=== PATIENT | male | born 1970 | race Caucasian/White ===

== ENCOUNTER 2020-10-11 21:53 | Inpatient (IN) | payer MEDICAID, OTHER ==
[~2020-10-11] VITALS: Ht 175.3 cm; Wt 81.5 kg
[2020-10-11] MEDS ORDERED: heparin 25,000 UNIT/250ml bag 250 ML IV SCH ×2 (21:55→23:55)
[2020-10-11] MEDS ORDERED: nitroGLYCERIN-Tridil 50MG/D5W 250 ML IV PRN (21:55)
[2020-10-11] MEDS ORDERED: normal saline 1000ML IV soln IVB ONE (21:55)
[2020-10-11] MEDS ORDERED: aspirin 81mg tab.chew PO ONE (21:55)
[2020-10-11] MEDS ORDERED: heparin 10,000 units/1 ML INJ IV ONE ×2 (21:55→22:20)
[2020-10-11 22:12] LABS: BASOPHILS # (AUTO) 0.1 X10'3 (0-0.2); BASOPHILS % (AUTO) 0.8 % (0-1); EOSINOPHILS # (AUTO) 0.2 X10'3 (0-0.9); EOSINOPHILS % (AUTO) 1.9 % (0-6); HEMATOCRIT 42.4 % (42.0-52.0); HEMOGLOBIN 14.6 g/dl (14.0-17.9); LYMPHOCYTES # (AUTO) 2.1 X10'3 (1.1-4.8); LYMPHOCYTES % (AUTO) 21.7 % (21-51); MEAN CORPUSCULAR HEMOGLOBIN 32.4 PG (27.0-31.0); MEAN CORPUSCULAR HGB CONC 34.5 g/dL (33.0-36.5); MEAN CORPUSCULAR VOLUME 93.9 FL (78-98); MEAN PLATELET VOLUME 7.7 FL (7.4-10.4); MONOCYTES # (AUTO) 0.9 X10'3 (0-0.9); MONOCYTES % (AUTO) 9.3 % (2-12); NEUTROPHILS # (AUTO) 6.5 X10'3 (1.8-7.7); NEUTROPHILS % (AUTO) 66.3 % (42-75); PLATELET COUNT 247 X10'3 (140-440); RED BLOOD COUNT 4.51 X10'6 (4.70-6.10); RED CELL DISTRIBUTION WIDTH 12.9 % (11.5-14.5); WHITE BLOOD COUNT 9.7 X10'3 (4.5-11.0)
--- NOTE | 2020-10-11 22:15 | NUR ---
[facility] [phone]
[2020-10-11] MEDS ORDERED: NO HOME MEDS (22:24)
[2020-10-11 23:21] LABS: ALANINE AMINOTRANSFERASE 34 U/L (12-78); ALBUMIN 3.2 G/DL (3.4-5.0); ALKALINE PHOSPHATASE 95 IU/L (46-116); ANION GAP 8 (8-16); ASPARTATE AMINO TRANSFERASE 41 U/L (10-37); BILIRUBIN,TOTAL 0.3 MG/DL (0.1-1.0); BLOOD UREA NITROGEN 24 MG/DL (7-18); BUN/CREATININE RATIO 19.7 (5.4-32.0); CALCIUM 8.4 MG/DL (8.5-10.1); CHLORIDE 110 MMOL/L (99-107); CREATININE 1.22 MG/DL (0.60-1.10); GLUCOSE 122 MG/DL (70-104); POTASSIUM 4.4 MMOL/L (3.5-5.1); SODIUM 143 MMOL/L (135-145); TOTAL CARBON DIOXIDE 24.6 MMOL/L (24-32); TOTAL PROTEIN 6.5 G/DL (6.4-8.2); eGFR 63 ML/MIN
[2020-10-11 23:30] LABS: MAGNESIUM 2.2 MG/DL (1.5-2.4); PARTIAL THROMBOPLASTIN TIME 86 SECONDS (22-32)
[2020-10-11] MEDS ORDERED: acetaminophen 325mg tablet PO PRN ×2 (23:55)
[2020-10-11] MEDS ORDERED: aminophylline 250mg/10ml inj. IV PRN (23:55)
[2020-10-11] MEDS ORDERED: HYDROcodone/acetaminophen 5mg/325mg tablet PO PRN (23:55)
[2020-10-11] MEDS ORDERED: metoprolol tartrate 1mg/ml inj IV PRN (23:55)
[2020-10-11] MEDS ORDERED: mag hydrox/Alum hydrox/simeth 30ml oral suspension PO PRN (23:55)
[2020-10-11] MEDS ORDERED: potassium Cl 20 mEq SR tablet PO PRN ×2 (23:55)
[2020-10-11] MEDS ORDERED: HYDROcodone/acetaminophen 10/325mg tab PO PRN (23:55)
[2020-10-11] MEDS ORDERED: magnesium Cl slow-release 64mg tablet PO PRN (23:55)
[2020-10-11] MEDS ORDERED: magnesium 2GM in 50ml NS 50 ML IV PRN (23:55)
[2020-10-11] MEDS ORDERED: regadenoson 0.4mg/5ml syringe IV PRN (23:55)
[2020-10-11] MEDS ORDERED: nitroGLYCERIN 0.4mg SUBLingual tab SL PRN (23:55)
[2020-10-11] MEDS ORDERED: morphine 2 MG/ML inj. syringe IV PRN (23:55)
[2020-10-11] MEDS ORDERED: potassium Cl 40MEQ/1/2NS 520ml 520 ML IV PRN ×2 (23:55)
[2020-10-11] MEDS ORDERED: heparin 10,000 units/1 ML INJ IV PRN (23:55)
[2020-10-11] MEDS ORDERED: ondansetron/PF 4mg/2ml inj IV PRN (23:55)
[2020-10-11] MEDS ORDERED: magnesium 4gm in 100ml NS 100 ML IV PRN (23:55)
[2020-10-11] MEDS ORDERED: magnesium hydroxide 30ml (MOM) UD suspension PO PRN (23:55)
[2020-10-12] VITALS (10 sets, daily range): BP systolic 111–142; BP diastolic 62–81
[2020-10-12] MEDS: normal saline 1000ml 1,000 ML IV SCH ×3 (00:21→19:30)
[2020-10-12 05:09] LABS: CLARITY,URINE CLEAR (Clear); COLOR,URINE YELLOW (Yellow); GLUCOSE, URINE NEGATIVE (Neg); KETONES,URINE NEGATIVE (Neg); LEUKOCYTE ESTERASE ,URINE NEGATIVE (Neg); NITRITES, URINE NEGATIVE (Neg); OCCULT BLOOD,URINE NEGATIVE (Neg); PH,URINE 5.5 (4.8-8.0); PROTEIN,URINE NEGATIVE (Neg); UROBILINOGEN,URINE 0.2 E.U/dL (0.2-1.0)
[2020-10-12 05:11] LABS: BASOPHILS % (AUTO) 0.5 % (0-1); EOSINOPHILS # (AUTO) 0.2 X10'3 (0-0.9); HEMATOCRIT 39.3 % (42.0-52.0); HEMOGLOBIN 13.1 g/dl (14.0-17.9); LYMPHOCYTES # (AUTO) 2.5 X10'3 (1.1-4.8); LYMPHOCYTES % (AUTO) 26.4 % (21-51); MEAN CORPUSCULAR HEMOGLOBIN 32.1 PG (27.0-31.0); MEAN CORPUSCULAR HGB CONC 33.4 g/dL (33.0-36.5); MEAN CORPUSCULAR VOLUME 96.2 FL (78-98); MEAN PLATELET VOLUME 7.9 FL (7.4-10.4); MONOCYTES # (AUTO) 0.8 X10'3 (0-0.9); MONOCYTES % (AUTO) 8.7 % (2-12); NEUTROPHILS # (AUTO) 5.8 X10'3 (1.8-7.7); NEUTROPHILS % (AUTO) 62.4 % (42-75); PLATELET COUNT 241 X10'3 (140-440); RED BLOOD COUNT 4.08 X10'6 (4.70-6.10); WHITE BLOOD COUNT 9.3 X10'3 (4.5-11.0)
[2020-10-12 05:14] LABS: PARTIAL THROMBOPLASTIN TIME 48 SECONDS (22-32)
[2020-10-12 05:16] LABS: UA COLLECTION TYPE CLN CATCH MIDSTREAM
[2020-10-12 05:20] LABS: ALANINE AMINOTRANSFERASE 40 U/L (12-78); ALBUMIN 3.1 G/DL (3.4-5.0); ALKALINE PHOSPHATASE 87 IU/L (46-116); ANION GAP 8 (8-16); ASPARTATE AMINO TRANSFERASE 48 U/L (10-37); BILIRUBIN,TOTAL 0.4 MG/DL (0.1-1.0); BLOOD UREA NITROGEN 19 MG/DL (7-18); BUN/CREATININE RATIO 18.3 (5.4-32.0); CALCIUM 7.9 MG/DL (8.5-10.1); CHLORIDE 111 MMOL/L (99-107); CHOL/HDL RATIO 3.6 (0.00-4.99); CHOLESTEROL 130 MG/DL (0-200); CREATININE 1.04 MG/DL (0.60-1.10); GLUCOSE 105 MG/DL (70-104); HDL CHOLESTEROL 36 MG/DL (35-60); LDL CHOLESTEROL 70 MG/DL (50-100); POTASSIUM 3.9 MMOL/L (3.5-5.1); SODIUM 144 MMOL/L (135-145); TOTAL PROTEIN 6.1 G/DL (6.4-8.2); TRIGLYCERIDES 109 MG/DL (20-135); eGFR 75 ML/MIN
[2020-10-12] MEDS: K and/or MAG REPLACEMENT MC SCH ×2 (08:00→20:00)
[2020-10-12] MEDS ORDERED: docusate sod 100mg capsule PO SCH ×2 (08:00→20:00)
[2020-10-12] MEDS ORDERED: PERFLUTREN PROTEIN-A MICROSPHR (Optison) 0.22 MG/ML 3ML VIAL IV ONE (08:00)
[2020-10-12] MEDS: morphine 2 MG/ML inj. syringe IV PRN ×2 (09:49→14:15)
--- NOTE | 2020-10-12 11:30 | NUR ---
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
[2020-10-12] MEDS ORDERED: iohexol 350MG/ML 100ml bottle IV ONE ×3 (11:32→12:55)
[2020-10-12] MEDS ORDERED: heparin 1,000 UNITS/NS 500ml 500 ML ONE (11:32)
[2020-10-12] MEDS ORDERED: iohexol 350 MG/ML 50ML vial IV ONE (11:32)
[2020-10-12] MEDS ORDERED: LIDOcaine 1% (10mg/ml)w/preservative injection 20ml MDV ONE ×2 (11:32→14:53)
[2020-10-12] MEDS ORDERED: midazolam 1 mg/ML 2ml injection ONE ×2 (11:33→14:53)
[2020-10-12] MEDS ORDERED: fentaNYL/PF 50MCG/1 ML 2ML syringe ONE ×2 (11:34→14:53)
[2020-10-12] MEDS ORDERED: tirofiban 5mg in NS 100mL 100 ML IV ONE (12:19)
[2020-10-12] MEDS ORDERED: heparin 1,000unit/ml 10ml vial 10 ML ONE ×2 (12:27→14:53)
[2020-10-12] MEDS ORDERED: clopidogrel 300mg tablet ONE (13:14)
--- NOTE | 2020-10-12 13:40 | NUR ---
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
[2020-10-12] MEDS ORDERED: ondansetron/PF 4mg/2ml inj IV PRN (14:10)
[2020-10-12] MEDS ORDERED: magnesium hydroxide 30ml (MOM) UD suspension PO PRN ×2 (14:10→14:40)
[2020-10-12] MEDS ORDERED: acetaminophen 325mg tablet PO PRN ×3 (14:10→14:40)
[2020-10-12] MEDS ORDERED: HYDROmorphone 1 mg/ml syringe IV ONE ×2 (14:25→14:45)
[2020-10-12] MEDS ORDERED: pantoprazole 40 MG vial IV ONE (14:25)
[2020-10-12] MEDS ORDERED: cyclobenzaprine 10mg tablet PO PRN ×2 (14:40→15:50)
[2020-10-12] MEDS ORDERED: proCHLORperazine 10 MG/2 ml inj IV PRN (14:40)
[2020-10-12] MEDS ORDERED: nitroGLYCERIN 0.4mg SUBLingual tab SL PRN (14:40)
[2020-10-12] MEDS ORDERED: OXAZEpam 15mg capsule PO PRN (14:40)
[2020-10-12] MEDS ORDERED: HYDROcodone/acetaminophen 10/325mg tab PO PRN (14:40)
[2020-10-12] MEDS ORDERED: iohexol 350 MG/1 ML 200ml bottle ONE (14:53)
[2020-10-12] MEDS: tirofiban 5mg in NS 100mL 100 ML IV SCH ×2 (14:54→21:30)
--- NOTE | 2020-10-12 15:10 | NUR ---
Shortly after arriving to the unit, Pt developed severe chest pain with radiation to neck and back. MD hamilton EKG ordered and pain medication and Nitro was started, which eventually eased the chest pain. Dr. Ga was phoned about Pt condition, and saw the patient. electroplating laborer team was called in and Pt went back to laborer at 1510.
--- NOTE | 2020-10-12 15:50 | NUR ---
Pt arrived back to the unit from cath lab tech. It was reported to me that the blood flow was good and there was no findings of any issues. Pt is resting comfortably now. Will continue to monitor.
--- NOTE | 2020-10-12 17:41 | NUR ---
Cardiac PTT critical >139. Heparin gtt stopped per protocol at 1730. Dr. Brown notified.
[2020-10-12] MEDS: docusate sod 100mg capsule PO SCH (19:52)
[2020-10-12] MEDS: ticagrelor 90mg tablet PO SCH (19:55)
[2020-10-12] MEDS: temazepam 15mg capsule PO PRN (20:37)
[2020-10-12] MEDS: HYDROcodone/acetaminophen 10/325mg tab PO PRN (20:39)
[2020-10-12] MEDS ORDERED: clopidogrel 300mg tablet PO ONE (21:10)
[2020-10-13] VITALS (17 sets, daily range): BP systolic 105–153; BP diastolic 58–90
[2020-10-13 02:58] LABS: BASOPHILS % (AUTO) 0.2 % (0-1); EOSINOPHILS % (AUTO) 0.5 % (0-6); HEMATOCRIT 38.1 % (42.0-52.0); HEMOGLOBIN 13.1 g/dl (14.0-17.9); LYMPHOCYTES # (AUTO) 1.4 X10'3 (1.1-4.8); LYMPHOCYTES % (AUTO) 18.4 % (21-51); MEAN CORPUSCULAR HEMOGLOBIN 32.3 PG (27.0-31.0); MEAN CORPUSCULAR HGB CONC 34.4 g/dL (33.0-36.5); MEAN CORPUSCULAR VOLUME 93.9 FL (78-98); MEAN PLATELET VOLUME 7.6 FL (7.4-10.4); MONOCYTES # (AUTO) 0.8 X10'3 (0-0.9); NEUTROPHILS # (AUTO) 5.5 X10'3 (1.8-7.7); NEUTROPHILS % (AUTO) 70.9 % (42-75); PLATELET COUNT 246 X10'3 (140-440); RED BLOOD COUNT 4.06 X10'6 (4.70-6.10); RED CELL DISTRIBUTION WIDTH 12.7 % (11.5-14.5); WHITE BLOOD COUNT 7.8 X10'3 (4.5-11.0)
[2020-10-13 03:20] LABS: ALANINE AMINOTRANSFERASE 38 U/L (12-78); ALBUMIN 2.8 G/DL (3.4-5.0); ALBUMIN/GLOBULIN RATIO 0.8 (1.1-1.5); ALKALINE PHOSPHATASE 92 IU/L (46-116); ANION GAP 8 (8-16); ASPARTATE AMINO TRANSFERASE 37 U/L (10-37); BILIRUBIN,TOTAL 0.6 MG/DL (0.1-1.0); BLOOD UREA NITROGEN 11 MG/DL (7-18); CALCIUM 7.9 MG/DL (8.5-10.1); CHLORIDE 106 MMOL/L (99-107); CREATININE 0.92 MG/DL (0.60-1.10); GLUCOSE 108 MG/DL (70-104); POTASSIUM 3.6 MMOL/L (3.5-5.1); SODIUM 139 MMOL/L (135-145); TOTAL CARBON DIOXIDE 25.3 MMOL/L (24-32); TOTAL PROTEIN 6.3 G/DL (6.4-8.2); eGFR 87 ML/MIN
[2020-10-13] MEDS: HYDROmorphone 1 mg/ml syringe IV PRN ×3 (03:35→13:17)
[2020-10-13] MEDS: tirofiban 5mg in NS 100mL 100 ML IV SCH (03:39)
[2020-10-13] MEDS: HYDROcodone/acetaminophen 10/325mg tab PO PRN ×2 (05:41→16:11)
--- NOTE | 2020-10-13 06:44 | NUR ---
Patient in room ICU 2041. I have received report from YUE PRADO, and had the opportunity to ask questions and assume patient care.
[2020-10-13] MEDS: K and/or MAG REPLACEMENT MC SCH ×2 (08:00→20:00)
[2020-10-13] MEDS ORDERED: PERFLUTREN PROTEIN-A MICROSPHR (Optison) 0.22 MG/ML 3ML VIAL IV ONE (08:00)
[2020-10-13] MEDS ORDERED: pantoprazole 40 MG vial IV SCH (08:00)
[2020-10-13] MEDS: pantoprazole 40mg Tablet.DR PO SCH (08:01)
[2020-10-13] MEDS: aspirin 81mg tab.chew PO SCH ×2 (08:01→08:03)
[2020-10-13] MEDS: clopidogrel 75mg tablet PO SCH (08:01)
[2020-10-13] MEDS: docusate sod 100mg capsule PO SCH ×2 (08:02→20:00)
[2020-10-13] MEDS: ticagrelor 90mg tablet PO SCH (08:02)
--- NOTE | 2020-10-13 10:20 | NUR ---
DR. MYLES ORDERED 40 MEQ OF POTASSIUM TO BE GIVEN. K - 3.6, AWARE.
[2020-10-13] MEDS ORDERED: Potassium Cl 40 MEQ in sodium chloride 0.45% 500 ML IV ONE (11:05)
--- NOTE | 2020-10-13 11:15 | NUR ---
NOTIFIED PHARM THAT PT RECEIVED 40 MEQ PO.
[2020-10-13] MEDS: normal saline 1000ml 1,000 ML IV SCH ×2 (11:16→21:28)
[2020-10-13] MEDS ORDERED: PERFLUTREN PROTEIN-A MICROSPHR (Optison) 0.22 MG/ML 3ML VIAL IV PRN (11:20)
--- NOTE | 2020-10-13 13:34 | NUR ---
Problems reprioritized. Patient report given, questions answered & plan of care reviewed with YUE RIVERA.
--- NOTE | 2020-10-13 14:00 | NUR ---
Patient in room PCU 3023. I have received report from YUE Stapleton and had the opportunity to ask questions and assume patient care.
--- NOTE | 2020-10-13 18:00 | NUR ---
Problems reprioritized. Patient report given, questions answered & plan of care reviewed with YUE Steward.
[2020-10-13] MEDS: temazepam 15mg capsule PO PRN (21:28)
[2020-10-14 03:00] VITALS: BP 111/68
[2020-10-14 06:13] LABS: BASOPHILS % (AUTO) 0.3 % (0-1); EOSINOPHILS # (AUTO) 0.1 X10'3 (0-0.9); EOSINOPHILS % (AUTO) 0.8 % (0-6); HEMATOCRIT 39.3 % (42.0-52.0); HEMOGLOBIN 13.2 g/dl (14.0-17.9); LYMPHOCYTES # (AUTO) 1.3 X10'3 (1.1-4.8); LYMPHOCYTES % (AUTO) 17.4 % (21-51); MEAN CORPUSCULAR HGB CONC 33.5 g/dL (33.0-36.5); MEAN CORPUSCULAR VOLUME 95.7 FL (78-98); MEAN PLATELET VOLUME 7.8 FL (7.4-10.4); MONOCYTES # (AUTO) 0.7 X10'3 (0-0.9); MONOCYTES % (AUTO) 9.7 % (2-12); NEUTROPHILS # (AUTO) 5.4 X10'3 (1.8-7.7); NEUTROPHILS % (AUTO) 71.8 % (42-75); PLATELET COUNT 226 X10'3 (140-440); RED CELL DISTRIBUTION WIDTH 12.8 % (11.5-14.5); WHITE BLOOD COUNT 7.5 X10'3 (4.5-11.0)
[2020-10-14 06:18] LABS: ALANINE AMINOTRANSFERASE 40 U/L (12-78); ALBUMIN 2.6 G/DL (3.4-5.0); ALBUMIN/GLOBULIN RATIO 0.7 (1.1-1.5); ALKALINE PHOSPHATASE 103 IU/L (46-116); ANION GAP 10 (8-16); ASPARTATE AMINO TRANSFERASE 32 U/L (10-37); BILIRUBIN,TOTAL 0.6 MG/DL (0.1-1.0); BLOOD UREA NITROGEN 11 MG/DL (7-18); BUN/CREATININE RATIO 12.5 (5.4-32.0); CALCIUM 7.9 MG/DL (8.5-10.1); CHLORIDE 105 MMOL/L (99-107); CREATININE 0.88 MG/DL (0.60-1.10); GLUCOSE 91 MG/DL (70-104); POTASSIUM 3.9 MMOL/L (3.5-5.1); SODIUM 138 MMOL/L (135-145); TOTAL CARBON DIOXIDE 22.9 MMOL/L (24-32); TOTAL PROTEIN 6.4 G/DL (6.4-8.2); eGFR > 90 ML/MIN
--- NOTE | 2020-10-14 06:34 | NUR ---
Patient in room PCU 3023. I have received report from YUE Steward and had the opportunity to ask questions and assume patient care. Patient asleep in bed and in no acute distress.
[2020-10-14 07:00] VITALS: BP 125/76
[2020-10-14] MEDS: K and/or MAG REPLACEMENT MC SCH (08:00)
[2020-10-14] MEDS ORDERED: enoxaparin 40mg/0.4ml syringe SUBCUT SCH (08:00)
[2020-10-14] MEDS: pantoprazole 40mg Tablet.DR PO SCH (08:41)
[2020-10-14] MEDS: clopidogrel 75mg tablet PO SCH (08:41)
[2020-10-14] MEDS: aspirin 81mg tab.chew PO SCH (08:41)
[2020-10-14] MEDS: docusate sod 100mg capsule PO SCH (08:41)
[2020-10-14] MEDS ORDERED: ATOR20TA PO (10:29)
[2020-10-14] MEDS ORDERED: ASPI81TA53 PO (10:29)
[2020-10-14] MEDS ORDERED: CARV3.12 PO (10:29)
[2020-10-14] MEDS ORDERED: CLOP75TA34 PO (10:29)
--- NOTE | 2020-10-14 12:35 | NUR ---
Patient stable for discharge per MD orders. All discharge instructions reviewed and questions answered appropriately. Belongings collected and sent with the patient. Patient stated they will call and schedule follow up appointment and will establish a PCP. New prescriptions were called in to [facility] pharmacy in [place]. PIV x 2 discontinued and cannulas intact. teletypesetter monitor discontinued. Patient refused wheelchair and ambulated down to the lobby and left via private vehicle.
== END 2020-10-14 12:35 | disposition home or self-care (01) | DRG 174 ==
LOC: ER 21:53 → ED HOLD 10-12 00:01 → ICU 2S 10-12 13:46 → PCU 3S 10-13 13:44
PROVIDERS: ADMIT Internal Medicine; ATTEND Internal Medicine
PROC: 4A023N7 Measurement of Cardiac Sampling and Pressure, Left Heart, Percutaneous Approach (ICD-10-PCS; principal; 2020-10-12)
PROC: 027034Z Dilation of Coronary Artery, One Artery with Drug-eluting Intraluminal Device, Percutaneous Approach (ICD-10-PCS; 2020-10-12)
PROC: B2111ZZ Fluoroscopy of Multiple Coronary Arteries using Low Osmolar Contrast (ICD-10-PCS; 2020-10-12)
PROC: B2151ZZ Fluoroscopy of Left Heart using Low Osmolar Contrast (ICD-10-PCS; 2020-10-12)
PROC: B41F1ZZ Fluoroscopy of Right Lower Extremity Arteries using Low Osmolar Contrast (ICD-10-PCS; 2020-10-12)
DX: I21.4 Non-ST elevation (NSTEMI) myocardial infarction (principal); F12.90 Cannabis use, unspecified, uncomplicated; F17.210 Nicotine dependence, cigarettes, uncomplicated; F41.9 Anxiety disorder, unspecified; I12.9 Hypertensive chronic kidney disease with stage 1 through stage 4 chronic kidney disease, or unspecified chronic kidney disease; M79.18 Myalgia, other site; I25.10 Atherosclerotic heart disease of native coronary artery without angina pectoris; N18.30 Chronic kidney disease, stage 3 unspecified; Z20.822 Contact with and (suspected) exposure to COVID-19; I25.2 Old myocardial infarction; Z91.030 Bee allergy status; Z71.6 Tobacco abuse counseling; Z79.02 Long term (current) use of antithrombotics/antiplatelets
CPT/HCPCS: 36415; 71045; 80053; 80061; 81003; 83735; 83880; 84484; 85025; 85610; 85730; 87081; 87635; 93005; 93306; 93454; 93458; 99152; 99153; 99291; A4620; A5120; A6258; A6449; C1751; C1760; C1769; C1874; C9600; C9803; G0378; J1170; J1644; J2001; J2250; J2270; J3010; J3246; J3490; J7030; J7040; Q9967